=== PATIENT | female | born 1985 | race African-American/Black ===

== ENCOUNTER 2017-08-27 16:56 | Emergency (ER) | payer MEDICAID ==
[~2017-08-27] VITALS: Ht 152.4 cm; Wt 86.2 kg
[2017-08-27 17:05] VITALS: Ht 152.4 cm; Wt 86.2 kg
[2017-08-27 18:13] VITALS: BP 150/88
== END 2017-08-27 18:05 | disposition home or self-care (01) ==
LOC: ED 16:56
DX: M70.61 Trochanteric bursitis, right hip (principal); I10 Essential (primary) hypertension; J45.909 Unspecified asthma, uncomplicated; Y93.89 Activity, other specified
CPT/HCPCS: J1885